=== PATIENT | female | born 1945 | race Caucasian/White ===

== ENCOUNTER → 2017-12-27 | Outpatient (CLI) | payer OTHER, SELFPAY ==
[~2017-12-27] MED LIST: CELE200 PO; CRUTCH2 USE; EZET10 PO; GABA300 PO; HYDACE5 PO; LISI20; LISINOPRIL 20 MG TAB; Lovastatin10 MG; Tylenol325 MG PO
== END | disposition home or self-care (01) ==
LOC: LAB 14:04 → LAB SHORT 14:04
DX: R35.0 Frequency of micturition (principal)
CPT/HCPCS: 87086

== ENCOUNTER → 2018-11-26 | Outpatient (CLI) | payer MEDICARE | END | disposition home or self-care (01) | LOC: LAB SHORT 10:44 → LAB SRC 10:44 | DX: N30.00 Acute cystitis without hematuria (principal) | CPT/HCPCS: 87086 ==

== ENCOUNTER → 2018-11-28 | Outpatient (CLI) | payer MEDICARE ==
[2018-11-29 14:14] LABS: Stool Occult Bld Immuno 1 Negative (NEGATIVE)
== END | disposition home or self-care (01) ==
LOC: LAB SHORT 04:00 → LAB SRC 04:00 → LAB FUT 11-26 12:35
PROVIDERS: Nurse Practitioner Family
DX: D64.9 Anemia, unspecified (principal)
CPT/HCPCS: G0328

== ENCOUNTER 2021-06-03 06:16 | Day surgery (SDC) | payer OTHER ==
[~2021-06-03] VITALS: Ht 152.4 cm; Wt 68.9 kg
[~2021-06-03 06:16] MED LIST changes: +ACYC400 PO; +ALBUTEROL INH; +ATOR20 PO; +Amlodipine Bes2.5 MG PO; +Lisinopril-Hct1 EAC4 PO
== END 2021-06-03 09:26 | disposition home or self-care (01) ==
LOC: ORSCSDS 06:16
PROVIDERS: Surgery
PROC: BF031ZZ Plain Radiography of Gallbladder and Bile Ducts using Low Osmolar Contrast (ICD-10-PCS; principal; 2021-06-03 07:30)
PROC: 0FT44ZZ Resection of Gallbladder, Percutaneous Endoscopic Approach (ICD-10-PCS; principal; 2021-06-03 07:30)
DX: K80.10 Calculus of gallbladder with chronic cholecystitis without obstruction (principal); K57.92 Diverticulitis of intestine, part unspecified, without perforation or abscess without bleeding; I10 Essential (primary) hypertension; J44.9 Chronic obstructive pulmonary disease, unspecified; E78.5 Hyperlipidemia, unspecified; Z79.899 Other long term (current) drug therapy; Z87.891 Personal history of nicotine dependence
CPT/HCPCS: 74300; 88304; C1729; J0690; J1100; J1885; J2250; J2370; J2405; J2704; J2710; J2765; J3010; J7120

== ENCOUNTER 2021-07-21 07:27 | Day surgery (SDC) | payer OTHER ==
[~2021-07-21] VITALS: Ht 152.4 cm; Wt 70.8 kg
--- NOTE | 2021-07-21 08:46 | NUR ---
Ambulatory in Day Surgery History, Chart, Medications and Allergies reviewed before start of procedure. Lungs clear T/O to Auscultation. Patient confirms NPO status and agrees with scheduled surgery. Pre-Op teaching done. Pt verbalizes understanding. Patient States Post-Procedure ride home has been arranged.
[2021-07-21] MEDS ORDERED: Voltaren100 GM TOP (08:49)
--- NOTE | 2021-07-21 09:30 | NUR ---
07/21/21 0253 Mary Caban History, Chart, Medications and Allergies reviewed before start of procedure. Patient confirms NPO status and agrees with scheduled surgery. 3-LEAD EKG REVIEWED WITH PHYSICIAN PRIOR TO START OF PROCEDURE. MONITOR INTACT WITH CONTINUOUS PULSE OXIMETRY AND INTERMITTENT BP. PATIENT DETERMINED TO BE ASA APPROPRIATE FOR PROPOFOL SEDATION PRIOR TO START OF PROCEDURE BY DR. GARIBAY
--- NOTE | 2021-07-21 09:49 | NUR ---
PT DENIES NAUSEA OR DIFFICULTY SWALLOWING p PROCEDURE. IV DC'D, CATH INTACT AND PRESSURE DRESSING APPLIED. GIVEN DC INSTRUCTIONS. NO QUESTIONS. OTD IN NAD VIA WC, ESCORTED BY DARA ROBLES.
== END 2021-07-21 22:50 | disposition home or self-care (01) ==
LOC: ORSCMMR 07:27 → ORD 09:00 → ORSCMMR 09:00
PROVIDERS: Surgery
PROC: 0DB68ZX Excision of Stomach, Via Natural or Artificial Opening Endoscopic, Diagnostic (ICD-10-PCS; principal; 2021-07-21 09:00)
DX: R10.13 Epigastric pain (principal); I10 Essential (primary) hypertension; E78.5 Hyperlipidemia, unspecified; K29.70 Gastritis, unspecified, without bleeding; E66.9 Obesity, unspecified; Z68.30 Body mass index [BMI] 30.0-30.9, adult; Z79.899 Other long term (current) drug therapy
CPT/HCPCS: 88305; 88341; 88342; J2704; J7120

== ENCOUNTER → 2022-03-02 | Outpatient (CLI) | payer OTHER ==
[~2022-03-02] MED LIST changes: +Voltaren100 GM TOP
== END | disposition home or self-care (01) ==
LOC: LAB SHORT 17:49 → LAB 17:49
DX: R35.0 Frequency of micturition (principal)
CPT/HCPCS: 87077; 87086; 87186